=== PATIENT | female | born 1950 | race Caucasian/White ===

== ENCOUNTER 2016-06-12 00:39 | Inpatient (IN) | payer OTHER ==
[~2016-06-12] VITALS: Ht 170.2 cm; Wt 108.9 kg
[2016-06-12] VITALS (28 sets, daily range): BP systolic 98–153
[2016-06-12] MEDS ORDERED: ASPIRIN 81 MG TAB.CHEW PO ONE (00:45)
[2016-06-12] MEDS ORDERED: LEVOFLOXACIN 500 MG/D5W 100 ML IV ONE (01:00)
[2016-06-12 01:23] LABS: HEMATOCRIT 37.5 % (36-48); HEMOGLOBIN 12.8 g/dL (12.0-16.0); MEAN CORPUSCULAR HEMOGLOBIN 31 pg (27-31); MEAN CORPUSCULAR HGB CONC 34 % (32-36); MEAN CORPUSCULAR VOLUME 91 fL (79.0-98.0); PLATELET COUNT (AUTO) 283 K/uL (130-430); RED BLOOD CELL COUNT(AUTO) 4.12 MIL/uL (4.2-6.2); RED CELL DISTRIBUTION WIDTH 18.4 % (9.0-15.0); WHITE BLOOD COUNT (AUTO) 8.1 K/uL (4.8-10.8)
[2016-06-12 01:54] LABS: CALCIUM 9.3 mg/dL (8.4-11.0); CREATININE 0.81 mg/dL (0.55-1.30)
[2016-06-12] MEDS ORDERED: ASPI325T2 PO (01:56)
[2016-06-12] MEDS ORDERED: LIP40 PO (01:57)
[2016-06-12] MEDS ORDERED: WELSR150 PO (01:57)
[2016-06-12 01:58] LABS: INR 1.2 (0.8-1.2); PROTHROMBIN TIME 12.6 SECS (9.5-12.5)
[2016-06-12] MEDS ORDERED: CHOL100038 PO (01:58)
[2016-06-12] MEDS ORDERED: DILT240C2 PO (01:58)
[2016-06-12 01:59] LABS: ALBUMIN 2.6 g/dL (3.4-4.8); PHOSPHORUS 2.9 mg/dL (2.7-4.5); TOTAL PROTEIN, SERUM 6.6 g/dL (6.4-8.3)
[2016-06-12] MEDS ORDERED: FURO40TA5 PO (01:59)
[2016-06-12] MEDS ORDERED: LORazepam 2 MG/ML VIAL IVP ONE (02:00)
[2016-06-12] MEDS ORDERED: LORazepam 2 MG/ML VIAL (FOR ER USE) ONE (02:02)
[2016-06-12 02:12] LABS: BAND % (MANUAL) 18 % (0-6); BASOPHILS % (MANUAL) 0 % (0-2); CORRECTED WHITE BLOOD COUNT 7.7 K/uL (4.5-11.0); EOSINOPHILS % (MANUAL) 0 % (0-7); LYMPHOCYTES % (MANUAL) 14 % (20-46); METAMYELOCYTES % 2 % (0-0); MONOCYTES % (MANUAL) 12 % (0-11); MYELOCYTES % 1 % (0-0)
[2016-06-12] MEDS ORDERED: DILTIAZEM HCL 125 MG in D5W 100 ML IV ONE ×2 (02:45→03:15)
[2016-06-12] MEDS ORDERED: FUROSEMIDE 40 MG/4 ML VIAL IVP ONE (02:45)
[2016-06-12 03:00] LABS: BILIRUBIN,URINE 2+ (NEGATIVE); BLOOD, URINE 2+ (NEGATIVE); CLARITY/URINE CLOUDY (CLEAR); COLOR,URINE YELLOW (YELLOW); GLUCOSE,URINE 3+ (NEGATIVE); KETONES,URINE 2+ (NEGATIVE); LEUKOCYTE ESTERASE ,URINE 2+ (NEGATIVE); NITRITE, URINE NEGATIVE (NEGATIVE); PROTEIN URINE 2+ (NEGATIVE)
[2016-06-12] MEDS ORDERED: DILTIAZEM HCL 125 MG/25 ML VIAL IV ONE (03:02)
[2016-06-12] MEDS ORDERED: SPIRIVA INH (03:08)
[2016-06-12] MEDS ORDERED: METO25TA3 PO (03:08)
[2016-06-12] MEDS ORDERED: POTA-118 PO (03:08)
[2016-06-12] MEDS ORDERED: PRO40 PO (03:08)
[2016-06-12 03:15] LABS: BACTERIA,URINE MANY /HPF (None Seen); MUCUS,URINE None Seen /LPF (None Seen); WBC,URINE >100 /HPF (0-3); YEAST,URINE Moderate /HPF (None Seen)
[2016-06-12] MEDS: INSULIN REGULAR, HUMAN 100 UNITS/ML, 10 ML VIAL (novoLIN R) SUBCUT PRN ×4 (06:11→22:27)
[2016-06-12 06:37] LABS: CALCIUM 8.9 mg/dL (8.4-11.0); CREATININE 0.86 mg/dL (0.55-1.30); POTASSIUM 3.9 mmol/L (3.5-5.1)
[2016-06-12 07:22] LABS: HEMATOCRIT 34.6 % (36-48); HEMOGLOBIN 11.8 g/dL (12.0-16.0); MEAN CORPUSCULAR HEMOGLOBIN 31 pg (27-31); MEAN CORPUSCULAR HGB CONC 34 % (32-36); MEAN CORPUSCULAR VOLUME 91 fL (79.0-98.0); PLATELET COUNT (AUTO) 255 K/uL (130-430); RED BLOOD CELL COUNT(AUTO) 3.81 MIL/uL (4.2-6.2); RED CELL DISTRIBUTION WIDTH 19.2 % (9.0-15.0); WHITE BLOOD COUNT (AUTO) 7.6 K/uL (4.8-10.8)
[2016-06-12] MEDS ORDERED: DIGOXIN 0.5 MG/2 ML AMP IVP ONE (08:00)
[2016-06-12] MEDS: LACTOBACILLUS RHAMNOSUS GG 1 CAP CAPSULE PO SCH ×2 (08:29→22:23)
[2016-06-12] MEDS: FUROSEMIDE 40 MG/4 ML VIAL IVP SCH ×2 (08:29→22:24)
[2016-06-12] MEDS: DILTIAZEM HCL 240 MG CAP.SR.24H PO SCH (08:45)
[2016-06-12] MEDS ORDERED: methylPREDNISolone SOD SUCC/PF 62.5 MG/ML VIAL IVP ONE (08:45)
[2016-06-12] MEDS: METOPROLOL TARTRATE 25 MG TABLET PO SCH ×2 (08:46→22:23)
[2016-06-12] MEDS ORDERED: PANTOPRAZOLE SODIUM 40 MG TAB PO SCH (09:00)
[2016-06-12 10:14] LABS: BLOOD GAS PH 7.399 (7.350-7.450)
[2016-06-12 10:15] LABS: BLOOD GAS BASE EXCESS 11.3 mmol/L (-3.0-3.0)
[2016-06-12 10:44] LABS: BAND % (MANUAL) 41 % (0-6); CORRECTED WHITE BLOOD COUNT 7.1 K/uL (4.5-11.0); LYMPHOCYTES % (MANUAL) 9 % (20-46); MONOCYTES % (MANUAL) 13 % (0-11)
[2016-06-12 10:45] LABS: BASOPHILS % (MANUAL) 0 % (0-2); EOSINOPHILS % (MANUAL) 0 % (0-7); METAMYELOCYTES % 1 % (0-0)
[2016-06-12] MEDS ORDERED: ENOXAPARIN SODIUM 40 MG/0.4 ML SYRINGE SUBCUT ONE (11:00)
[2016-06-12] MEDS ORDERED: MIDAZOLAM HCL 2 MG/2 ML VIAL (VERSED) ONE ×2 (11:36→11:38)
[2016-06-12] MEDS ORDERED: ETOMIDATE 20 MG/ 10 ML VIAL (AMIDATE) ONE (11:37)
[2016-06-12] MEDS ORDERED: NOREPINEPHRINE BITARTRATE 4 MG in D5W 246 ML IV PRN (12:00)
[2016-06-12] MEDS: IPRATROPIUM/ALBUTEROL SULFATE 3 ML AMPUL.NEB INH SCH ×4 (12:05→23:05)
[2016-06-12] MEDS: PROPOFOL DRIP 100 ML IV PRN ×3 (12:30→21:43)
[2016-06-12 13:09] LABS: BLOOD GAS BASE EXCESS 10.1 mmol/L (-3.0-3.0)
[2016-06-12 13:10] LABS: ABG TOTAL HEMOGLOBIN 12.8 G/dL (12.0-18.0); BLOOD GAS COHb% 0.7 % (0.5-1.5); BLOOD GAS HHB 0.9 % (0.0-6.0); BLOOD O2Hb% 97.8 % (94.0-97.0)
[2016-06-12] MEDS: methylPREDNISolone SOD SUCC/PF 62.5 MG/ML VIAL IVP SCH ×2 (14:46→22:23)
[2016-06-13] VITALS (34 sets, daily range): BP systolic 98–132
[2016-06-13] MEDS: NACL 0.9% 1,000 ML IV SCH ×3 (00:46→19:47)
[2016-06-13] MEDS: PROPOFOL DRIP 100 ML IV PRN ×4 (03:23→21:59)
[2016-06-13] MEDS: IPRATROPIUM/ALBUTEROL SULFATE 3 ML AMPUL.NEB INH SCH ×5 (03:31→21:52)
[2016-06-13] MEDS: methylPREDNISolone SOD SUCC/PF 62.5 MG/ML VIAL IVP SCH ×3 (05:21→21:30)
[2016-06-13] MEDS: LEVOFLOXACIN 500 MG/D5W 100 ML IV SCH (05:22)
[2016-06-13] MEDS: INSULIN REGULAR, HUMAN 100 UNITS/ML, 10 ML VIAL (novoLIN R) SUBCUT PRN ×3 (05:28→18:31)
[2016-06-13 06:25] LABS: BASOPHILS % (AUTO) 0.1 % (0.0-2.0); EOSINOPHILS % (AUTO) 0.1 % (0.0-4.0); HEMATOCRIT 31.5 % (36-48); HEMOGLOBIN 10.5 g/dL (12.0-16.0); LYMPHOCYTES # (AUTO) 0.5 K/uL (1.0-5.5); LYMPHOCYTES % (AUTO) 6.8 % (20.5-51.5); MEAN CORPUSCULAR HEMOGLOBIN 30 pg (27-31); MEAN CORPUSCULAR HGB CONC 34 % (32-36); MEAN CORPUSCULAR VOLUME 91 fL (79.0-98.0); MONOCYTES # (AUTO) 0.2 K/uL (0.0-1.0); NEUTROPHILS # (AUTO) 6.2 K/uL (1.8-7.7); PLATELET COUNT (AUTO) 235 K/uL (130-430); RED BLOOD CELL COUNT(AUTO) 3.47 MIL/uL (4.2-6.2); RED CELL DISTRIBUTION WIDTH 18.7 % (9.0-15.0); WHITE BLOOD COUNT (AUTO) 6.9 K/uL (4.8-10.8)
[2016-06-13] MEDS: MORPHINE 2 MG/ML INJ. SYRINGE IVP PRN ×2 (06:46→16:09)
[2016-06-13 07:15] LABS: CALCIUM 8.6 mg/dL (8.4-11.0); CREATININE 1.05 mg/dL (0.55-1.30); POTASSIUM 3.5 mmol/L (3.5-5.1); THYROID STIMULATING HORMONE 0.37 uIu/mL (0.34-4.82); TOTAL BILIRUBIN 0.8 mg/dL (0.0-1.0); TOTAL PROTEIN, SERUM 5.6 g/dL (6.4-8.3)
[2016-06-13 08:01] LABS: ABG TOTAL HEMOGLOBIN 10.9 G/dL (12.0-18.0); BLOOD GAS BASE EXCESS 3.3 mmol/L (-3.0-3.0); BLOOD GAS PH 7.472 (7.350-7.450); BLOOD O2Hb% 97.5 % (94.0-97.0)
[2016-06-13 08:02] LABS: BLOOD GAS HHB 1.9 % (0.0-6.0)
[2016-06-13] MEDS: PANTOPRAZOLE SODIUM 40 MG/VIAL (PROTONIX) IVP SCH (09:40)
[2016-06-13] MEDS: DILTIAZEM HCL 240 MG CAP.SR.24H PO SCH (09:41)
[2016-06-13] MEDS: METOPROLOL TARTRATE 25 MG TABLET PO SCH ×2 (09:41→21:31)
[2016-06-13] MEDS: ENOXAPARIN SODIUM 40 MG/0.4 ML SYRINGE SUBCUT SCH (09:42)
[2016-06-13] MEDS ORDERED: DIGOXIN 0.5 MG/2 ML AMP IVP ONE (09:45)
[2016-06-13] MEDS: LACTOBACILLUS RHAMNOSUS GG 1 CAP CAPSULE PO SCH ×2 (09:48→21:30)
[2016-06-13] MEDS ORDERED: DILTIAZEM HCL 240 MG CAP.SR.24H PO ONE ×3 (17:00→17:14)
[2016-06-13] MEDS ORDERED: MENTHOL/ZINC OXIDE 113 GM OINT. TP PRN (17:30)
[2016-06-13] MEDS: LORazepam 2 MG/ML VIAL IVP PRN (18:55)
[2016-06-13] MEDS: MENTHOL/ZINC OXIDE 113 GM OINT. TP SCH (21:00)
[2016-06-13] MEDS: ANTIFUNGAL CLEAR OINTMENT TP SCH (21:00)
[2016-06-13] MEDS ORDERED: FUROSEMIDE 40 MG/4 ML VIAL IVP ONE (22:00)
[2016-06-13] MEDS ORDERED: NS 250 ML IV ONE (22:00)
[2016-06-14] VITALS (34 sets, daily range): BP systolic 89–133
[2016-06-14] MEDS: IPRATROPIUM/ALBUTEROL SULFATE 3 ML AMPUL.NEB INH SCH ×6 (00:02→19:57)
[2016-06-14] MEDS: INSULIN REGULAR, HUMAN 100 UNITS/ML, 10 ML VIAL (novoLIN R) SUBCUT PRN ×4 (00:07→17:36)
[2016-06-14] MEDS: LEVOFLOXACIN 500 MG/D5W 100 ML IV SCH (01:29)
[2016-06-14] MEDS: PROPOFOL DRIP 100 ML IV PRN ×5 (01:57→19:41)
[2016-06-14] MEDS: methylPREDNISolone SOD SUCC/PF 62.5 MG/ML VIAL IVP SCH ×3 (05:50→22:08)
[2016-06-14 06:40] LABS: BASOPHILS % (AUTO) 0.1 % (0.0-2.0); CALCIUM 8.4 mg/dL (8.4-11.0); CREATININE 1.45 mg/dL (0.55-1.30); EOSINOPHILS % (AUTO) 0.1 % (0.0-4.0); HEMATOCRIT 31.6 % (36-48); HEMOGLOBIN 10.7 g/dL (12.0-16.0); LYMPHOCYTES # (AUTO) 0.3 K/uL (1.0-5.5); MEAN CORPUSCULAR HEMOGLOBIN 31 pg (27-31); MEAN CORPUSCULAR HGB CONC 34 % (32-36); MEAN CORPUSCULAR VOLUME 91 fL (79.0-98.0); MONOCYTES # (AUTO) 0.2 K/uL (0.0-1.0); NEUTROPHILS # (AUTO) 7.8 K/uL (1.8-7.7); NEUTROPHILS % (AUTO) 92.8 % (40.0-70.0); PLATELET COUNT (AUTO) 247 K/uL (130-430); POTASSIUM 3.8 mmol/L (3.5-5.1); RED BLOOD CELL COUNT(AUTO) 3.47 MIL/uL (4.2-6.2); RED CELL DISTRIBUTION WIDTH 18.5 % (9.0-15.0); TOTAL BILIRUBIN 0.7 mg/dL (0.0-1.0); TOTAL PROTEIN, SERUM 5.7 g/dL (6.4-8.3); WHITE BLOOD COUNT (AUTO) 8.3 K/uL (4.8-10.8)
[2016-06-14] MEDS: NACL 0.9% 1,000 ML IV SCH ×2 (06:43→15:15)
[2016-06-14 07:45] LABS: ABG TOTAL HEMOGLOBIN 11.5 G/dL (12.0-18.0); BLOOD GAS BASE EXCESS -0.1 mmol/L (-3.0-3.0); BLOOD GAS PH 7.443 (7.350-7.450); BLOOD O2Hb% 95.4 % (94.0-97.0)
[2016-06-14 07:46] LABS: BLOOD GAS COHb% 0.2 % (0.5-1.5)
[2016-06-14] MEDS: FUROSEMIDE 40 MG/4 ML VIAL IVP SCH (08:49)
[2016-06-14] MEDS: DIGOXIN 0.5 MG/2 ML AMP IVP SCH (08:49)
[2016-06-14] MEDS: LACTOBACILLUS RHAMNOSUS GG 1 CAP CAPSULE PO SCH ×2 (08:50→20:36)
[2016-06-14] MEDS: PANTOPRAZOLE SODIUM 40 MG/VIAL (PROTONIX) IVP SCH (08:50)
[2016-06-14] MEDS: ENOXAPARIN SODIUM 40 MG/0.4 ML SYRINGE SUBCUT SCH (08:50)
[2016-06-14] MEDS: MENTHOL/ZINC OXIDE 113 GM OINT. TP SCH ×4 (08:54→20:37)
[2016-06-14] MEDS: METOPROLOL TARTRATE 25 MG TABLET PO SCH ×2 (08:54→20:36)
[2016-06-14] MEDS: DILTIAZEM HCL 240 MG CAP.SR.24H PO SCH (09:00)
[2016-06-14] MEDS: ANTIFUNGAL CLEAR OINTMENT TP SCH ×2 (09:00→20:37)
[2016-06-15] VITALS (37 sets, daily range): BP systolic 120–171
[2016-06-15] MEDS: IPRATROPIUM/ALBUTEROL SULFATE 3 ML AMPUL.NEB INH SCH ×7 (00:02→23:15)
[2016-06-15] MEDS: INSULIN REGULAR, HUMAN 100 UNITS/ML, 10 ML VIAL (novoLIN R) SUBCUT PRN ×5 (00:09→18:45)
[2016-06-15] MEDS: NACL 0.9% 1,000 ML IV SCH ×2 (00:14→10:56)
[2016-06-15] MEDS: PROPOFOL DRIP 100 ML IV PRN ×5 (01:21→20:01)
[2016-06-15] MEDS: LEVOFLOXACIN 500 MG/D5W 100 ML IV SCH (02:04)
[2016-06-15 06:17] LABS: BASOPHILS # (AUTO) 0.1 K/uL (0.0-0.2); BASOPHILS % (AUTO) 0.8 % (0.0-2.0); HEMATOCRIT 32.6 % (36-48); HEMOGLOBIN 10.9 g/dL (12.0-16.0); LYMPHOCYTES # (AUTO) 0.3 K/uL (1.0-5.5); MEAN CORPUSCULAR HEMOGLOBIN 30 pg (27-31); MEAN CORPUSCULAR HGB CONC 34 % (32-36); MEAN CORPUSCULAR VOLUME 91 fL (79.0-98.0); MONOCYTES # (AUTO) 0.2 K/uL (0.0-1.0); MONOCYTES % (AUTO) 2.6 % (1.7-9.3); NEUTROPHILS % (AUTO) 93.6 % (40.0-70.0); PLATELET COUNT (AUTO) 238 K/uL (130-430); RED BLOOD CELL COUNT(AUTO) 3.58 MIL/uL (4.2-6.2); RED CELL DISTRIBUTION WIDTH 18.7 % (9.0-15.0); WHITE BLOOD COUNT (AUTO) 8.6 K/uL (4.8-10.8)
[2016-06-15] MEDS: methylPREDNISolone SOD SUCC/PF 62.5 MG/ML VIAL IVP SCH ×3 (06:32→20:58)
[2016-06-15 06:36] LABS: CALCIUM 8.4 mg/dL (8.4-11.0); CREATININE 1.17 mg/dL (0.55-1.30); POTASSIUM 3.4 mmol/L (3.5-5.1)
[2016-06-15] MEDS ORDERED: KCL 40 mEq in 100 mL (PREMIX) 100 ML IV ONE (07:15)
[2016-06-15 07:57] LABS: ABG TOTAL HEMOGLOBIN 11.2 G/dL (12.0-18.0); BLOOD GAS BASE EXCESS 0.9 mmol/L (-3.0-3.0); BLOOD GAS COHb% 0.4 % (0.5-1.5); BLOOD GAS HHB 4.2 % (0.0-6.0); BLOOD GAS PH 7.468 (7.350-7.450); BLOOD O2Hb% 94.9 % (94.0-97.0)
[2016-06-15] MEDS: DILTIAZEM HCL 240 MG CAP.SR.24H PO SCH (08:25)
[2016-06-15] MEDS: METOPROLOL TARTRATE 25 MG TABLET PO SCH ×2 (08:25→20:59)
[2016-06-15] MEDS: PANTOPRAZOLE SODIUM 40 MG/VIAL (PROTONIX) IVP SCH (08:25)
[2016-06-15] MEDS: LACTOBACILLUS RHAMNOSUS GG 1 CAP CAPSULE PO SCH ×2 (08:25→20:58)
[2016-06-15] MEDS: DIGOXIN 0.5 MG/2 ML AMP IVP SCH (08:26)
[2016-06-15] MEDS: FUROSEMIDE 40 MG/4 ML VIAL IVP SCH (08:26)
[2016-06-15] MEDS: ENOXAPARIN SODIUM 40 MG/0.4 ML SYRINGE SUBCUT SCH (08:27)
[2016-06-15] MEDS: MENTHOL/ZINC OXIDE 113 GM OINT. TP SCH ×4 (08:30→21:03)
[2016-06-15] MEDS: ANTIFUNGAL CLEAR OINTMENT TP SCH ×2 (08:45→21:03)
[2016-06-16] VITALS (32 sets, daily range): BP systolic 104–174
[2016-06-16] MEDS: INSULIN REGULAR, HUMAN 100 UNITS/ML, 10 ML VIAL (novoLIN R) SUBCUT PRN ×4 (00:56→18:18)
[2016-06-16] MEDS: NACL 0.9% 1,000 ML IV SCH (01:55)
[2016-06-16] MEDS: LEVOFLOXACIN 500 MG/D5W 100 ML IV SCH (01:55)
[2016-06-16] MEDS: PROPOFOL DRIP 100 ML IV PRN ×4 (02:10→22:13)
[2016-06-16] MEDS: IPRATROPIUM/ALBUTEROL SULFATE 3 ML AMPUL.NEB INH SCH ×6 (03:55→23:06)
[2016-06-16 06:48] LABS: BASOPHILS # (AUTO) 0.2 K/uL (0.0-0.2); BASOPHILS % (AUTO) 1.3 % (0.0-2.0); EOSINOPHILS # (AUTO) 0.2 K/uL (0.0-0.4); EOSINOPHILS % (AUTO) 1.8 % (0.0-4.0); HEMATOCRIT 33.3 % (36-48); HEMOGLOBIN 11.3 g/dL (12.0-16.0); LYMPHOCYTES # (AUTO) 0.5 K/uL (1.0-5.5); LYMPHOCYTES % (AUTO) 3.7 % (20.5-51.5); MEAN CORPUSCULAR HEMOGLOBIN 31 pg (27-31); MEAN CORPUSCULAR HGB CONC 34 % (32-36); MEAN CORPUSCULAR VOLUME 91 fL (79.0-98.0); MONOCYTES # (AUTO) 0.4 K/uL (0.0-1.0); MONOCYTES % (AUTO) 2.9 % (1.7-9.3); NEUTROPHILS # (AUTO) 11.4 K/uL (1.8-7.7); NEUTROPHILS % (AUTO) 90.3 % (40.0-70.0); PLATELET COUNT (AUTO) 250 K/uL (130-430); RED BLOOD CELL COUNT(AUTO) 3.66 MIL/uL (4.2-6.2); RED CELL DISTRIBUTION WIDTH 18.5 % (9.0-15.0); WHITE BLOOD COUNT (AUTO) 12.7 K/uL (4.8-10.8)
[2016-06-16 07:04] LABS: CALCIUM 8.5 mg/dL (8.4-11.0); CHLORIDE 103 mmol/L (98-107); GLUCOSE 364 mg/dL (70-99); POTASSIUM 3.7 mmol/L (3.5-5.1); SODIUM SERUM 137 mmol/L (136-145); UREA NITROGEN, BLOOD 42 mg/dL (8-21)
[2016-06-16 07:27] LABS: ANION GAP < 3 (5-15); GFR AFRICAN AMERICAN 93 mL/min (>90)
[2016-06-16 08:15] LABS: ABG TOTAL HEMOGLOBIN 12.2 G/dL (12.0-18.0); BLOOD GAS BASE EXCESS 5.7 mmol/L (-3.0-3.0)
[2016-06-16 08:16] LABS: BLOOD GAS COHb% 1.2 % (0.5-1.5); BLOOD GAS HHB 5.6 % (0.0-6.0)
[2016-06-16] MEDS: PANTOPRAZOLE SODIUM 40 MG/VIAL (PROTONIX) IVP SCH (08:42)
[2016-06-16] MEDS: ENOXAPARIN SODIUM 40 MG/0.4 ML SYRINGE SUBCUT SCH (08:42)
[2016-06-16] MEDS: FUROSEMIDE 40 MG/4 ML VIAL IVP SCH (08:43)
[2016-06-16] MEDS: METOPROLOL TARTRATE 25 MG TABLET PO SCH ×2 (08:43→20:45)
[2016-06-16] MEDS: LACTOBACILLUS RHAMNOSUS GG 1 CAP CAPSULE PO SCH ×2 (08:43→20:45)
[2016-06-16] MEDS: DILTIAZEM HCL 240 MG CAP.SR.24H PO SCH (08:44)
[2016-06-16] MEDS: DIGOXIN 0.5 MG/2 ML AMP IVP SCH (08:44)
[2016-06-16] MEDS: methylPREDNISolone SOD SUCC/PF 62.5 MG/ML VIAL IVP SCH (08:44)
[2016-06-16] MEDS: ANTIFUNGAL CLEAR OINTMENT TP SCH ×2 (08:50→20:48)
[2016-06-16] MEDS: MENTHOL/ZINC OXIDE 113 GM OINT. TP SCH ×4 (08:51→20:48)
[2016-06-16] MEDS: MUPIROCIN 2% TOPICAL OINTMENT 22 GM TP SCH ×2 (09:36→20:47)
[2016-06-16] MEDS: MORPHINE 2 MG/ML INJ. SYRINGE IVP PRN ×2 (18:59→21:10)
[2016-06-16] MEDS: LORazepam 2 MG/ML VIAL IVP PRN (19:32)
[2016-06-16] MEDS: LINEZOLID 600 MG TABLET PO SCH (20:46)
[2016-06-17] VITALS (28 sets, daily range): BP systolic 88–136
[2016-06-17] MEDS: INSULIN REGULAR, HUMAN 100 UNITS/ML, 10 ML VIAL (novoLIN R) SUBCUT PRN ×4 (00:18→18:01)
[2016-06-17] MEDS: LEVOFLOXACIN 500 MG/D5W 100 ML IV SCH (02:03)
[2016-06-17] MEDS: IPRATROPIUM/ALBUTEROL SULFATE 3 ML AMPUL.NEB INH SCH ×6 (03:58→23:23)
[2016-06-17] MEDS: NACL 0.9% 1,000 ML IV SCH ×2 (07:16→23:00)
[2016-06-17 08:36] LABS: BLOOD GAS BASE EXCESS 6.3 mmol/L (-3.0-3.0); BLOOD GAS COHb% 0.5 % (0.5-1.5); BLOOD GAS HHB 4.9 % (0.0-6.0); BLOOD GAS PH 7.475 (7.350-7.450); BLOOD O2Hb% 94.3 % (94.0-97.0)
[2016-06-17] MEDS: LINEZOLID 600 MG TABLET PO SCH ×2 (08:49→20:40)
[2016-06-17] MEDS: FUROSEMIDE 40 MG/4 ML VIAL IVP SCH (08:50)
[2016-06-17] MEDS: DIGOXIN 0.5 MG/2 ML AMP IVP SCH (08:52)
[2016-06-17] MEDS: PANTOPRAZOLE SODIUM 40 MG/VIAL (PROTONIX) IVP SCH (08:53)
[2016-06-17] MEDS: DILTIAZEM HCL 240 MG CAP.SR.24H PO SCH (08:54)
[2016-06-17] MEDS: METOPROLOL TARTRATE 25 MG TABLET PO SCH ×2 (08:54→20:39)
[2016-06-17] MEDS: ENOXAPARIN SODIUM 40 MG/0.4 ML SYRINGE SUBCUT SCH (08:55)
[2016-06-17] MEDS: MUPIROCIN 2% TOPICAL OINTMENT 22 GM TP SCH ×2 (08:56→20:47)
[2016-06-17] MEDS: MENTHOL/ZINC OXIDE 113 GM OINT. TP SCH ×4 (08:57→20:47)
[2016-06-17] MEDS: ANTIFUNGAL CLEAR OINTMENT TP SCH ×2 (08:57→20:45)
[2016-06-17] MEDS: PROPOFOL DRIP 100 ML IV PRN ×3 (11:47→20:51)
[2016-06-17] MEDS ORDERED: BISACODYL 10 MG/SUPPOSITORY RC PRN (13:15)
[2016-06-18] VITALS (29 sets, daily range): BP systolic 83–146
[2016-06-18] MEDS: INSULIN REGULAR, HUMAN 100 UNITS/ML, 10 ML VIAL (novoLIN R) SUBCUT PRN ×3 (00:14→11:57)
[2016-06-18] MEDS: PROPOFOL DRIP 100 ML IV PRN ×3 (00:19→09:05)
[2016-06-18] MEDS: LEVOFLOXACIN 500 MG/D5W 100 ML IV SCH (01:59)
[2016-06-18] MEDS: IPRATROPIUM/ALBUTEROL SULFATE 3 ML AMPUL.NEB INH SCH ×5 (04:05→18:56)
[2016-06-18 06:37] LABS: ALBUMIN 1.7 g/dL (3.4-4.8); CALCIUM 8.1 mg/dL (8.4-11.0); CREATININE 0.64 mg/dL (0.55-1.30); TOTAL BILIRUBIN 0.5 mg/dL (0.0-1.0)
[2016-06-18 07:04] LABS: HEMOGLOBIN 10.6 g/dL (12.0-16.0); MEAN CORPUSCULAR HEMOGLOBIN 30 pg (27-31); MEAN CORPUSCULAR HGB CONC 32 % (32-36); MEAN CORPUSCULAR VOLUME 92 fL (79.0-98.0); PLATELET COUNT (AUTO) 243 K/uL (130-430); RED BLOOD CELL COUNT(AUTO) 3.59 MIL/uL (4.2-6.2); RED CELL DISTRIBUTION WIDTH 18.5 % (9.0-15.0); WHITE BLOOD COUNT (AUTO) 16.1 K/uL (4.8-10.8)
[2016-06-18 08:12] LABS: ABG TOTAL HEMOGLOBIN 11.1 G/dL (12.0-18.0); BLOOD GAS BASE EXCESS 10.8 mmol/L (-3.0-3.0)
[2016-06-18 08:13] LABS: BLOOD GAS COHb% 0.6 % (0.5-1.5); BLOOD GAS HHB 4.8 % (0.0-6.0); BLOOD O2Hb% 94.2 % (94.0-97.0)
[2016-06-18] MEDS: FUROSEMIDE 40 MG/4 ML VIAL IVP SCH (08:24)
[2016-06-18] MEDS: ENOXAPARIN SODIUM 40 MG/0.4 ML SYRINGE SUBCUT SCH (08:24)
[2016-06-18] MEDS: PANTOPRAZOLE SODIUM 40 MG/VIAL (PROTONIX) IVP SCH (08:24)
[2016-06-18] MEDS: DILTIAZEM HCL 240 MG CAP.SR.24H PO SCH (08:24)
[2016-06-18] MEDS: LINEZOLID 600 MG TABLET PO SCH (08:25)
[2016-06-18] MEDS: DIGOXIN 0.5 MG/2 ML AMP IVP SCH (08:25)
[2016-06-18] MEDS: METOPROLOL TARTRATE 25 MG TABLET PO SCH (08:26)
[2016-06-18] MEDS: MENTHOL/ZINC OXIDE 113 GM OINT. TP SCH ×3 (08:27→17:00)
[2016-06-18] MEDS: ANTIFUNGAL CLEAR OINTMENT TP SCH (08:27)
[2016-06-18] MEDS: MUPIROCIN 2% TOPICAL OINTMENT 22 GM TP SCH (08:28)
[2016-06-18 10:54] LABS: ATYPICAL LYMPHOCYTES % 4 % (0-0); BAND % (MANUAL) 5 % (0-6); BASOPHILS % (MANUAL) 0 % (0-2); EOSINOPHILS % (MANUAL) 0 % (0-7); LYMPHOCYTES % (MANUAL) 5 % (20-46); MONOCYTES % (MANUAL) 9 % (0-11)
[2016-06-18 10:55] LABS: METAMYELOCYTES % 2 % (0-0); MYELOCYTES % 1 % (0-0)
[2016-06-18] MEDS: ALBUMIN HUMAN 25% 50 ML IV SCH ×2 (13:16→16:45)
[2016-06-18] MEDS ORDERED: PROPOFOL DRIP 100 ML IV ONE (14:26)
[2016-06-18] MEDS: LORazepam 2 MG/ML VIAL IVP PRN (14:31)
[2016-06-18] MEDS ORDERED: HYDROmorphone 2 MG/ML VIAL IVP PRN ×2 (20:15)
[2016-06-18] MEDS ORDERED: HYDROmorphone 1 MG INJ. 1 MG/ML AMPUL IVP PRN (20:15)
[2016-06-18] MEDS ORDERED: LORazepam 2 MG/ML VIAL IVP PRN (20:15)
[2016-06-18] MEDS ORDERED: HYDROmorphone 1 MG INJ. 1 MG/ML AMPUL ONE (20:23)
[2016-06-18] MEDS ORDERED: LINEZOLID 300 ML IV SCH (21:00)
[2016-06-18] MEDS ORDERED: FUROSEMIDE 40 MG/4 ML VIAL IVP ONE (22:00)
[2016-06-19] VITALS (18 sets, daily range): BP systolic 106–143
[2016-06-19] MEDS: LORazepam 2 MG/ML VIAL IVP PRN ×3 (13:31→21:51)
[2016-06-20 00:37] VITALS: BP_SYST 165
== END 2016-06-20 00:53 | disposition expired | DRG 870 ==
LOC: SED 00:39 → SIC 03:01 → SMU 06-19 16:38
PROVIDERS: ADMIT Family Medicine; ATTEND Family Medicine
PROC: 5A1955Z Respiratory Ventilation, Greater than 96 Consecutive Hours (ICD-10-PCS; principal; 2016-06-12)
PROC: 5A09357 Assistance with Respiratory Ventilation, Less than 24 Consecutive Hours, Continuous Positive Airway Pressure (ICD-10-PCS; 2016-06-12)
PROC: 0BH17EZ Insertion of Endotracheal Airway into Trachea, Via Natural or Artificial Opening (ICD-10-PCS; 2016-06-12)
DX: A41.9 Sepsis, unspecified organism (principal); J96.20 Acute and chronic respiratory failure, unspecified whether with hypoxia or hypercapnia; J18.9 Pneumonia, unspecified organism; N39.0 Urinary tract infection, site not specified; J44.1 Chronic obstructive pulmonary disease with (acute) exacerbation; I47.2 Ventricular tachycardia; I48.2 Chronic atrial fibrillation; I27.81 Cor pulmonale (chronic); G47.33 Obstructive sleep apnea (adult) (pediatric); E78.5 Hyperlipidemia, unspecified; E66.01 Morbid (severe) obesity due to excess calories; F32.9 Major depressive disorder, single episode, unspecified; F41.9 Anxiety disorder, unspecified; I50.9 Heart failure, unspecified; Z79.52 Long term (current) use of systemic steroids; Z99.81 Dependence on supplemental oxygen; Z79.4 Long term (current) use of insulin; Z68.37 Body mass index [BMI] 37.0-37.9, adult; Z87.891 Personal history of nicotine dependence; Z22.322 Carrier or suspected carrier of Methicillin resistant Staphylococcus aureus
CPT/HCPCS: 36415; 36600; 71010; 76770; 80048; 80053; 80061; 81000-TC; 82550-TC; 82803-TC; 82962; 83605; 83735-TC; 83880; 84100-TC; 84134; 84443-TC; 84484; 85007; 85025; 85027; 85610-TC; 85730-TC; 86710; 87040-TC; 87070-TC; 87081; 87086; 87186-TC; 87205-TC; 93005; 93306; 93970; 94002; 94003; 94640; 94660; 94760; 96365; 96367; 96375; 99285; C1751; C9113; J1160; J1170; J1650; J1815; J1940; J1956; J2020; J2060; J2270; J2704; J2930; J3465; J3480; J3490; J7030; J7050; J7060; P9046